=== PATIENT | male | born 1970 | race Caucasian/White ===

== ENCOUNTER 2019-09-06 17:37 | Emergency (ER) | payer SELFPAY ==
[2019-09-06] MEDS ORDERED: Amlodipine 5 MG TAB ONE (18:52)
--- NOTE | 2019-09-06 19:15 | RAD ---
Portable frontal chest radiograph: 09/06/2019 COMPARISON: None HISTORY: Headache FINDINGS: Lungs are clear. Heart and mediastinal contours appear within normal limits. IMPRESSION: No acute findings.
== END 2019-09-06 20:35 | disposition home or self-care (01) ==
LOC: MADERS 17:37
DX: I10 Essential (primary) hypertension (principal); F17.210 Nicotine dependence, cigarettes, uncomplicated
CPT/HCPCS: 71045; 93005

== ENCOUNTER 2019-12-19 08:35 | Emergency (ER) | payer SELFPAY | END 2019-12-19 08:58 | disposition left against medical advice (07) | LOC: MADERS 08:35 | DX: Z53.21 Procedure and treatment not carried out due to patient leaving prior to being seen by health care provider (principal) ==